=== PATIENT | male | born 1995 | race Caucasian/White ===

== ENCOUNTER 2017-09-10 08:44 | Emergency (ER) | payer OTHER ==
[~2017-09-10] VITALS: Ht 180.3 cm; Wt 156.5 kg
[~2017-09-10 08:44] MED LIST: KEFLEX250 MG/5 M PO; NAPROSYN500 MG PO; TYLENOL W/CODE480 ML PO; ZOFRAN ODT4 MG SL; Zofran4 MG PO
[2017-09-10] MEDS ORDERED: IBUPROFEN600 MG PO (10:39)
== END 2017-09-10 10:56 | disposition home or self-care (01) ==
LOC: ED 08:44
DX: S86.812A Strain of other muscle(s) and tendon(s) at lower leg level, left leg, initial encounter (principal); X50.1XXA Overexertion from prolonged static or awkward postures, initial encounter; Y93.89 Activity, other specified; Y92.89 Other specified places as the place of occurrence of the external cause; Y99.9 Unspecified external cause status

== ENCOUNTER 2017-10-07 12:42 | Emergency (ER) | payer OTHER ==
[~2017-10-07] VITALS: Ht 177.8 cm; Wt 154.2 kg
[~2017-10-07 12:42] MED LIST changes: +IBUPROFEN600 MG PO
[2017-10-07] MEDS ORDERED: PREDNISONE10 MG PO (13:05)
[2017-10-07] MEDS ORDERED: FLONASE ALLERG9.9 ML NAS (13:05)
[2017-10-07] MEDS ORDERED: CLARITIN10 MG PO (13:05)
[2017-10-07] MEDS ORDERED: ROBITUSSIN DM 105 ML PO (13:05)
== END 2017-10-07 13:57 | disposition home or self-care (01) ==
LOC: ED 12:42
DX: J20.9 Acute bronchitis, unspecified (principal); R03.0 Elevated blood-pressure reading, without diagnosis of hypertension

== ENCOUNTER 2018-11-14 19:04 | Emergency (ER) | payer OTHER ==
[~2018-11-14] VITALS: Ht 177.8 cm; Wt 136.1 kg
[~2018-11-14 19:04] MED LIST changes: +CLARITIN10 MG PO; +FLONASE ALLERG9.9 ML NAS; +PREDNISONE10 MG PO; +ROBITUSSIN DM 105 ML PO
[2018-11-14] MEDS ORDERED: AMLODIPINE BESYL5 MG PO (19:15)
[2018-11-14] MEDS ORDERED: HYDROCHLOROTHIA25 M1 PO (19:15)
[2018-11-14] MEDS ORDERED: ATENOLOL50 M1 PO (19:15)
[2018-11-14] MEDS ORDERED: IBU600 M1 PO (19:18)
== END 2018-11-14 19:40 | disposition home or self-care (01) ==
LOC: ED 19:04
DX: T23.211A Burn of second degree of right thumb (nail), initial encounter (principal); Z79.899 Other long term (current) drug therapy; X19.XXXA Contact with other heat and hot substances, initial encounter; Y93.G3 Activity, cooking and baking; Y92.090 Kitchen in other non-institutional residence as the place of occurrence of the external cause; Y99.9 Unspecified external cause status

== ENCOUNTER 2021-03-30 23:02 | Emergency (ER) | payer SELFPAY ==
[~2021-03-30] VITALS: Ht 177.8 cm; Wt 172.4 kg
[~2021-03-30 23:02] MED LIST changes: +AMLODIPINE BESYL5 MG PO; +ATENOLOL50 M1 PO; +HYDROCHLOROTHIA25 M1 PO; +IBU600 M1 PO
[2021-03-30 23:52] LABS: BASO # 0.1 10*3/uL (0.0-0.1); BASO % 0.5 % (0.0-1.0); EOS # 0.1 10*3/uL (0.0-0.4); EOS % 1.1 % (1.0-4.0); HEMATOCRIT 43.1 % (42.0-52.0); LYMPH # 2.2 10*3/uL (1.3-4.4); LYMPH % 21.9 % (27.0-41.0); MEAN CELL VOLUME 85.3 fl (80.0-94.0); MEAN CORPUSCULAR HGB 27.5 pg (27.0-31.0); MEAN CORPUSCULAR HGB CONC 32.3 g/dl (33.0-37.0); MEAN PLATELET VOLUME 10.2 fl (9.6-12.3); MONO # 0.8 10*3/uL (0.1-1.0); MONO % 8.1 % (3.0-9.0); NEUT # 6.7 10*3/uL (2.3-7.9); NEUT % 67.8 % (47.0-73.0); PLATELET COUNT AUTOMATED 301 10*3/uL (130-400); RED BLOOD COUNT 5.05 10*6/uL (4.50-5.90); RED CELL DISTRI WIDTH 13.5 % (0-14.5); WHITE BLOOD COUNT 9.9 10*3/uL (4.8-10.8)
[2021-03-31 00:18] LABS: ALBUMIN 3.5 gm/dl (3.1-4.5); ALKALINE PHOSPHATASE 90 U/L (45-117); BUN 10 mg/dl (7-24); CHLORIDE 102 mmol/L (98-107); CREATININE 1.21 mg/dL (0.70-1.30); POTASSIUM 3.6 mmol/L (3.5-5.1); SGOT/AST 28 IU/L (3-35); SGPT/ALT 60 U/L (12-78); SODIUM 137 mmol/L (136-145); TOTAL PROTEIN 7.3 gm/dL (6.4-8.2)
[2021-03-31] MEDS ORDERED: PREDNISONE20 M1 PO (01:02)
[2021-03-31] MEDS ORDERED: ZITHROMAX250 MG PO (01:02)
== END 2021-03-31 01:39 | disposition home or self-care (01) ==
LOC: ED 23:02
PROVIDERS: Internal Medicine
DX: J20.8 Acute bronchitis due to other specified organisms (principal); Z20.822 Contact with and (suspected) exposure to COVID-19; R79.82 Elevated C-reactive protein (CRP); R11.2 Nausea with vomiting, unspecified; Z79.899 Other long term (current) drug therapy

== ENCOUNTER 2021-04-02 14:43 | Emergency (ER) | payer SELFPAY ==
[~2021-04-02] VITALS: Ht 177.8 cm; Wt 172.4 kg
[~2021-04-02 14:43] MED LIST changes: +PREDNISONE20 M1 PO; +ZITHROMAX250 MG PO
[2021-04-02 16:49] LABS: BASO % 0.4 % (0.0-1.0); EOS % 0.2 % (1.0-4.0); HEMATOCRIT 44.6 % (42.0-52.0); LYMPH # 1.5 10*3/uL (1.3-4.4); LYMPH % 15.9 % (27.0-41.0); MEAN CELL VOLUME 86.4 fl (80.0-94.0); MEAN CORPUSCULAR HGB 27.9 pg (27.0-31.0); MEAN CORPUSCULAR HGB CONC 32.3 g/dl (33.0-37.0); MEAN PLATELET VOLUME 10.2 fl (9.6-12.3); MONO # 0.5 10*3/uL (0.1-1.0); MONO % 4.7 % (3.0-9.0); NEUT # 7.5 10*3/uL (2.3-7.9); NEUT % 77.9 % (47.0-73.0); PLATELET COUNT AUTOMATED 297 10*3/uL (130-400); RED BLOOD COUNT 5.16 10*6/uL (4.50-5.90); RED CELL DISTRI WIDTH 13.7 % (0-14.5); WHITE BLOOD COUNT 9.6 10*3/uL (4.8-10.8)
[2021-04-02 17:04] LABS: ALBUMIN 3.7 gm/dl (3.1-4.5); ALKALINE PHOSPHATASE 84 U/L (45-117); BUN 15 mg/dl (7-24); CHLORIDE 104 mmol/L (98-107); CREATININE 1.13 mg/dL (0.70-1.30); POTASSIUM 4.3 mmol/L (3.5-5.1); SGOT/AST 29 IU/L (3-35); SGPT/ALT 63 U/L (12-78); SODIUM 139 mmol/L (136-145); TOTAL PROTEIN 7.5 gm/dL (6.4-8.2)
[2021-04-02 17:12] LABS: THYROID STIM HORMONE (HS) 0.928 uIU/ml (0.358-4.75)
[2021-04-02] MEDS ORDERED: ZOFRAN4 MG PO (20:46)
== END 2021-04-02 21:00 | disposition home or self-care (01) ==
LOC: ED 14:43
PROVIDERS: Physician Assistant
DX: B27.90 Infectious mononucleosis, unspecified without complication (principal)

== ENCOUNTER 2021-04-06 21:43 | Emergency (ER) | payer SELFPAY ==
[~2021-04-06 21:43] MED LIST changes: +ZOFRAN4 MG PO
[2021-04-06 22:51] LABS: BASO # 0.1 10*3/uL (0.0-0.1); BASO % 0.7 % (0.0-1.0); EOS # 0.2 10*3/uL (0.0-0.4); EOS % 1.6 % (1.0-4.0); HEMATOCRIT 46.7 % (42.0-52.0); LYMPH # 2.9 10*3/uL (1.3-4.4); MEAN CELL VOLUME 84.4 fl (80.0-94.0); MEAN CORPUSCULAR HGB 27.5 pg (27.0-31.0); MEAN CORPUSCULAR HGB CONC 32.5 g/dl (33.0-37.0); MEAN PLATELET VOLUME 10.4 fl (9.6-12.3); MONO % 9.3 % (3.0-9.0); NEUT # 6.1 10*3/uL (2.3-7.9); NEUT % 59.2 % (47.0-73.0); PLATELET COUNT AUTOMATED 339 10*3/uL (130-400); RED BLOOD COUNT 5.53 10*6/uL (4.50-5.90); RED CELL DISTRI WIDTH 13.5 % (0-14.5); WHITE BLOOD COUNT 10.4 10*3/uL (4.8-10.8)
[2021-04-06 23:13] LABS: ALBUMIN 3.7 gm/dl (3.1-4.5); ALKALINE PHOSPHATASE 88 U/L (45-117); BUN 10 mg/dl (7-24); CHLORIDE 103 mmol/L (98-107); CREATININE 0.96 mg/dL (0.70-1.30); LIPASE 102 U/L (73-393); POTASSIUM 3.8 mmol/L (3.5-5.1); SGOT/AST 35 IU/L (3-35); SGPT/ALT 101 U/L (12-78); SODIUM 136 mmol/L (136-145); TOTAL PROTEIN 7.2 gm/dL (6.4-8.2)
[2021-04-07] MEDS ORDERED: PHENERGAN25 M3 PO (00:40)
== END 2021-04-07 01:01 | disposition home or self-care (01) ==
LOC: ED 21:43
PROVIDERS: Internal Medicine
DX: B34.9 Viral infection, unspecified (principal); R79.82 Elevated C-reactive protein (CRP); R11.2 Nausea with vomiting, unspecified; Z79.899 Other long term (current) drug therapy; Z79.2 Long term (current) use of antibiotics

== ENCOUNTER 2022-05-11 18:34 | Emergency (ER) | payer SELFPAY ==
[~2022-05-11] VITALS: Ht 175.2 cm; Wt 163.3 kg
[~2022-05-11 18:34] MED LIST changes: +PHENERGAN25 M3 PO
[2022-05-11 19:40] LABS: BASO % 0.5 % (0.0-1.0); EOS # 0.1 10*3/uL (0.0-0.4); EOS % 1.2 % (1.0-4.0); HEMATOCRIT 44.4 % (42.0-52.0); LYMPH # 1.8 10*3/uL (1.3-4.4); LYMPH % 20.7 % (27.0-41.0); MEAN CELL VOLUME 88.4 fl (80.0-94.0); MEAN CORPUSCULAR HGB 29.1 pg (27.0-31.0); MEAN CORPUSCULAR HGB CONC 32.9 g/dl (33.0-37.0); MEAN PLATELET VOLUME 10.5 fl (9.6-12.3); MONO # 0.6 10*3/uL (0.1-1.0); MONO % 6.8 % (3.0-9.0); NEUT # 6.2 10*3/uL (2.3-7.9); NEUT % 70.5 % (47.0-73.0); PLATELET COUNT AUTOMATED 293 10*3/uL (130-400); RED BLOOD COUNT 5.02 10*6/uL (4.50-5.90); RED CELL DISTRI WIDTH 13.2 % (0-14.5); WHITE BLOOD COUNT 8.8 10*3/uL (4.8-10.8)
[2022-05-11 19:55] LABS: ALKALINE PHOSPHATASE 94 U/L (45-117); BUN 12 mg/dl (7-24); CHLORIDE 110 mmol/L (98-107); CREATININE 0.98 mg/dL (0.70-1.30); POTASSIUM 3.7 mmol/L (3.5-5.1); SGOT/AST 22 IU/L (3-35); SGPT/ALT 55 U/L (12-78); SODIUM 142 mmol/L (136-145); TOTAL PROTEIN 7.1 gm/dL (6.4-8.2)
[2022-05-11] MEDS ORDERED: NAPROSYN500 MG PO (20:59)
[2022-05-11] MEDS ORDERED: ZANAFLEX4 MG PO (20:59)
== END 2022-05-11 21:05 | disposition home or self-care (01) ==
LOC: ED 18:34
PROVIDERS: Nurse Practitioner Family
DX: S46.912A Strain of unspecified muscle, fascia and tendon at shoulder and upper arm level, left arm, initial encounter (principal); Z20.822 Contact with and (suspected) exposure to COVID-19; Z79.899 Other long term (current) drug therapy; X58.XXXA Exposure to other specified factors, initial encounter; Y93.89 Activity, other specified; Y92.89 Other specified places as the place of occurrence of the external cause; Y99.8 Other external cause status